=== PATIENT | female | born 1990 | race Two or more races ===

== ENCOUNTER 2016-10-07 12:32 | Emergency (ER) | payer SELFPAY ==
[~2016-10-07] VITALS: Ht 152.4 cm; Wt 69.4 kg
[~2016-10-07 12:32] MED LIST: NAPR500T PO; PREN1TAB99 PO
--- NOTE | 2016-10-07 13:07 | PHYS DOC ---
Past Medical History Past Medical History: Kidney Infection, Migraines Past Surgical History: No Surgical History Alcohol Use: None Drug Use: None Adult General Chief Complaint Chief Complaint: VOMITING IN HPI HPI Patient is a 26 year old female with history of kidney infections and migraine headaches who presents today complaining of nausea and vomiting in . She is currently 8 weeks . She is a 3 para 1. She states she's had nausea and vomiting for 2 weeks. She states she saw her own SURGICAL NURSE PRACTITIONER who put her on vitamin B 12 supplements for nausea and vomiting. Patient denies any abdominal pain, denies any vaginal bleeding. Denies any urgency frequency or dysuria. She states she has slight right flank pain. Review of Systems Review of Systems Constitutional: Denies fever or chills [] Eyes: Denies change in visual acuity, redness, or eye pain [] HENT: Denies nasal congestion or sore throat [] Respiratory: Denies cough or shortness of breath [] Cardiovascular: No additional information not addressed in HPI [] GI: nausea, vomiting, : Denies dysuria or hematuria [] Musculoskeletal: Denies back pain or joint pain [] Integument: Denies rash or skin lesions [] Neurologic: Denies headache, focal weakness or sensory changes [] Current Medications Current Medications Current Medications Medications (Trade) Dose Ordered Sig/Kassidy Start Time Stop Time Status Last Admin Dose Admin Ondansetron HCl (Zofran) 4 mg 1X ONCE 10/07/16 13:15 10/07/16 13:16 DC 10/07/16 13:49 4 MG Sodium Chloride 1,000 ml @ 1,000 mls/hr 1X ONCE 10/07/16 13:15 10/07/16 14:14 DC 10/07/16 13:49 1,000 MLS/HR Allergies Allergies Allergies Coded Allergies Type Severity Reaction Last Updated Verified No Known Drug Allergies 08/22/15 No Physical Exam Physical Exam Constitutional: Well developed, well nourished, no acute distress, non-toxic appearance. [] HENT: Normocephalic, atraumatic, bilateral external ears normal, oropharynx moist, no oral exudates, nose normal. [] Eyes: PERRLA, EOMI, conjunctiva normal, no discharge. [] Neck: Normal range of motion, no tenderness, supple, no stridor. [] Cardiovascular:Heart rate regular rhythm, no murmur [] Lungs & Thorax: Bilateral breath sounds clear to auscultation [] Abdomen: Bowel sounds normal, soft, no tenderness, no masses, no pulsatile masses. [] Skin: Warm, dry, no erythema, no rash. [] Back: No tenderness, no CVA tenderness. [] Extremities: No tenderness, no cyanosis, no clubbing, ROM intact, no edema. [] Neurologic: Alert and oriented X 3, normal motor function, normal sensory function, no focal deficits noted. [] Psychologic: Affect normal, judgement normal, mood normal. [] Current Patient Data Vital Signs Vital Signs Date Time Temp Pulse Resp B/P (MAP) Pulse Ox O2 Delivery O2 Flow Rate FiO2 10/07/16 12:52 98.6 98 18 115/66 (82) 97 Room Air 98.6 Lab Values Laboratory Tests Test 10/07/16 11:51 10/07/16 12:40 10/07/16 13:25 POC Urine HCG, Qualitative Hcg positive (Negative) Urine Color Rena Urine Clarity Cloudy Urine pH 6.0 Urine Specific Ashley >=1.030 Urine Protein Negative mg/dL (NEG-TRACE) Urine Glucose (UA) Negative mg/dL (NEG) Urine Ketones (Stick) Negative mg/dL (NEG) Urine Blood Negative (NEG) Urine Nitrite Negative (NEG) Urine Bilirubin Negative (NEG) Urine Urobilinogen Dipstick 0.2 mg/dL (0.2 mg/dL) Urine Leukocyte Esterase Small (NEG) Urine RBC 0 /HPF (0-2) Urine WBC 1-4 /HPF (0-4) Urine Squamous Epithelial Cells Mod /LPF Urine Bacteria Few /HPF (0-FEW) Urine Mucus Mod /LPF White Blood Count 8.4 x10^3/uL (4.0-11.0) Red Blood Count 4.42 x10^6/uL (3.50-5.40) Hemoglobin 12.8 g/dL (12.0-15.5) Hematocrit 37.9 % (36.0-47.0) Mean Corpuscular Volume 86 fL (79-100) Mean Corpuscular Hemoglobin 29 pg (25-35) Mean Corpuscular Hemoglobin Concent 34 g/dL (31-37) Red Cell Distribution Width 13.4 % (11.5-14.5) Platelet Count 277 x10^3/uL (140-400) Neutrophils (%) (Auto) 66 % (31-73) Lymphocytes (%) (Auto) 25 % (24-48) Monocytes (%) (Auto) 8 % (0-9) Eosinophils (%) (Auto) 1 % (0-3) Basophils (%) (Auto) 0 % (0-3) Neutrophils # (Auto) 5.6 x10^3uL (1.8-7.7) Lymphocytes # (Auto) 2.1 x10^3/uL (1.0-4.8) Monocytes # (Auto) 0.7 x10^3/uL (0.0-1.1) Eosinophils # (Auto) 0.1 x10^3/uL (0.0-0.7) Basophils # (Auto) 0.0 x10^3/uL (0.0-0.2) Maternal Serum HCG Beta Subunit 558005 mIU/mL (0-5) H Sodium Level 136 mmol/L (136-145) Potassium Level 3.7 mmol/L (3.5-5.1) Chloride Level 101 mmol/L (98-107) Carbon Dioxide Level 27 mmol/L (21-32) Anion Gap 8 (6-14) Blood Urea Nitrogen 11 mg/dL (7-20) Creatinine 0.5 mg/dL (0.6-1.0) L Estimated GFR (Cockcroft-Gault) 149.1 Glucose Level 85 mg/dL (70-99) Calcium Level 8.8 mg/dL (8.5-10.1) Laboratory Tests 10/07/16 13:25 Laboratory Tests 10/07/16 13:25 EKG EKG [] Radiology/Procedures Radiology/Procedures [] Course & Med Decision Making Course & Med Decision Making Pertinent Labs and Imaging studies reviewed. (See chart for details) This is a 26-year-old female patient 3 para 2 currently 8 weeks presenting to the ED with nausea vomiting for 2 weeks. Patient is currently on vitamin B12 supplements which she states her SURGICAL NURSE PRACTITIONER gave her for nausea and vomiting. Patient's CBC and BMP with no acute findings. Urine analysis shows she could have a slight infection of the urine appears contaminated she does have flank pain. She was discharged on cephalexin. She was given a liter of IV fluid and Zofran with very good relief. She was discharged with Zofran, promethazine, and instructed follow up with her SURGICAL NURSE PRACTITIONER as soon as possible. Сергей Disclaimer Сергей Disclaimer This electronic medical record was generated, in whole or in part, using a voice recognition dictation system. Departure Departure Impression: Primary Impression: Hyperemesis gravidarum Additional Impression: Urinary tract infection Disposition: 01 HOME, SELF-CARE Condition: STABLE Referrals: UNKNOWN PCP NAME (PCP) Follow-up with your SURGICAL NURSE PRACTITIONER as soon as you can Patient Instructions: Diet - Hyperemesis Gravidarum, Hyperemesis Gravidarum, Urinary Tract Infection Additional Instructions: You were seen for nausea and vomiting during . Take the medications provided as ordered. You also have slight infection in your urine, complete your antibiotics. Follow-up with your SURGICAL NURSE PRACTITIONER as soon as you can. Take the prescribed antinausea medicine as ordered. Come back to the ED at any point your symptoms worsen. Scripts Cephalexin (CEPHALEXIN) 500 Mg Tablet 1 TAB PO BID, #14 TAB Prov: DREW COLLINS APRN 10/07/16 Promethazine Hcl (PROMETHAZINE HCL) 25 Mg Tablet 1 TAB PO PRN Q6HRS, #20 TAB Prov: DREW COLLINS APRN 10/07/16 Ondansetron (ZOFRAN ODT) 4 Mg Tab.rapdis 1 TAB SL Q8HRS, #15 TAB Prov: DREW COLLINS APRN 10/07/16 Problem Qualifiers Additional Impression: Urinary tract infection Urinary tract infection type: site unspecified Hematuria presence: without hematuria Qualified Codes: N39.0 - Urinary tract infection, site not specified DREW COLLINS APRN Oct 07, 2016 13:07
[2016-10-07] MEDS ORDERED: ONDANSETRON PF 4 MG/2 ML VIAL. IV ONE (13:15)
[2016-10-07] MEDS ORDERED: IV NORMAL SALINE 1000ML BAG 1,000 ML IV ONE (13:15)
[2016-10-07 13:17] LABS: BILIRUBIN,URINE NEGATIVE (NEG); GLUCOSE,URINE NEGATIVE (NEG); NITRITE,URINE NEGATIVE (NEG); PROTEIN,URINE NEGATIVE (NEG-TRACE); UROBILINOGEN,URINE 0.2 mg/dL (0.2 mg/dL)
[2016-10-07 13:39] LABS: BASO % 0 % (0-3); EOS % 1 % (0-3); HEMATOCRIT 37.9 % (36.0-47.0); HEMOGLOBIN 12.8 g/dL (12.0-15.5); LYMPH # 2.1 x10^3/uL (1.0-4.8); LYMPH % 25 % (24-48); MEAN CORPUSCULAR HEMOGLOBIN 29 pg (25-35); MEAN CORPUSCULAR HGB CONC 34 g/dL (31-37); MEAN CORPUSCULAR VOLUME 86 fL (79-100); MONO % 8 % (0-9); NEUT % 66 % (31-73); PLATELET COUNT 277 x10^3/uL (140-400); RED BLOOD COUNT 4.42 x10^6/uL (3.50-5.40); RED CELL DISTRIBUTION WIDTH 13.4 % (11.5-14.5); WHITE BLOOD COUNT 8.4 x10^3/uL (4.0-11.0)
[2016-10-07 13:56] LABS: BACTERIA,URINE FEW /HPF (0-FEW); RBC,URINE 0 /HPF (0-2); SQUAMOUS EPITHELIAL CELL,UR MOD /LPF
[2016-10-07 13:57] LABS: CALCIUM 8.8 mg/dL (8.5-10.1); CREATININE 0.5 mg/dL (0.6-1.0); GFR 149.1; POTASSIUM 3.7 mmol/L (3.5-5.1)
[2016-10-07 15:00] VITALS: BP 106/61
[2016-10-07] MEDS ORDERED: ONDA4TAB10 SL (15:00)
[2016-10-07] MEDS ORDERED: CEPH500T PO (15:00)
[2016-10-07] MEDS ORDERED: PROM25TA10 PO (15:00)
== END 2016-10-07 15:30 | disposition home or self-care (01) ==
LOC: ER 12:32
DX: O21.0 Mild hyperemesis gravidarum (principal); O23.41 Unspecified infection of urinary tract in pregnancy, first trimester; O99.351 Diseases of the nervous system complicating pregnancy, first trimester; G43.909 Migraine, unspecified, not intractable, without status migrainosus; Z3A.08 8 weeks gestation of pregnancy
CPT/HCPCS: 36415; 80048; 81001; 81025; 84702; 85025; 87086; 96361; 96374; 99284; J2405; J7030

== ENCOUNTER 2017-04-23 02:11 | Inpatient (IN) | payer SELFPAY ==
[2017-04-23] MEDS ORDERED: IBUPROFEN 800 MG TABLET. PO (02:30)
[2017-04-23] MEDS ORDERED: BUTORPHANOL 2 MG/ML VIAL. IV ×2 (02:30)
[2017-04-23] MEDS ORDERED: IV RINGERS,LACTATED 1000ML 1,000 ML IV (02:30)
[2017-04-23] MEDS ORDERED: TERBUTALINE 1 MG/ML VIAL. SQ (02:30)
[2017-04-23] MEDS ORDERED: 0.9 % SODIUM CHLORIDE 10 ML DISP.SYRIN. IV ×2 (02:30→06:00)
[2017-04-23] MEDS ORDERED: LIDOCAINE 1% PF 30 ML VIAL. INJ (02:30)
[2017-04-23 02:45] LABS: BILIRUBIN,URINE NEGATIVE (NEG); CLARITY,URINE CLEAR; COLOR,URINE YELLOW; GLUCOSE,URINE NEGATIVE (NEG); NITRITE,URINE NEGATIVE (NEG); PROTEIN,URINE NEGATIVE (NEG-TRACE); UROBILINOGEN,URINE 0.2 mg/dL (0.2 mg/dL)
[2017-04-23 02:48] LABS: BACTERIA,URINE MANY /HPF (0-FEW); RBC,URINE OCC /HPF (0-2); WBC,URINE >40 /HPF (0-4)
[2017-04-23 02:49] LABS: SQUAMOUS EPITHELIAL CELL,UR MOD /LPF
[2017-04-23] MEDS: IV RINGERS,LACTATED 1000ML 1,000 ML IV (02:58)
[2017-04-23] MEDS: PENICILLIN G K 5,000,000 UNIT in IV DEXTROSE 5% 100 ML IV (02:58)
[2017-04-23] MEDS: fentaNYL PF VIAL 100 MCG/2 ML VIAL IV ×2 (03:01→04:22)
[2017-04-23] MEDS: OXYTOCIN 30 UNIT/500 ML PREMIX 500 ML IV (03:01)
[2017-04-23 03:24] LABS: ADD MAN DIFF? NO
[2017-04-23 03:26] LABS: BASO % 0 % (0-3); EOS % 1 % (0-3); HEMATOCRIT 36.3 % (36.0-47.0); HEMOGLOBIN 12.2 g/dL (12.0-15.5); LYMPH # 2.1 x10^3/uL (1.0-4.8); LYMPH % 21 % (24-48); MEAN CORPUSCULAR HEMOGLOBIN 28 pg (25-35); MEAN CORPUSCULAR HGB CONC 34 g/dL (31-37); MEAN CORPUSCULAR VOLUME 84 fL (79-100); MONO # 0.7 x10^3/uL (0.0-1.1); MONO % 7 % (0-9); NEUT # 7.1 x10^3uL (1.8-7.7); NEUT % 71 % (31-73); PLATELET COUNT 203 x10^3/uL (140-400); RED BLOOD COUNT 4.33 x10^6/uL (3.50-5.40); RED CELL DISTRIBUTION WIDTH 14.4 % (11.5-14.5)
[2017-04-23] MEDS ORDERED: PHENYLEPH/MINERAL OIL/PETROLAT RECTAL OINTMENT 28GM TUBE. RC (06:00)
[2017-04-23] MEDS ORDERED: diphenhydrAMINE HCL 25 MG CAPSULE PO (06:00)
[2017-04-23] MEDS ORDERED: SIMETHICONE 80 MG TAB.CHEW PO (06:00)
[2017-04-23] MEDS ORDERED: OXYTOCIN 30 UNIT/500 ML PREMIX 500 ML IV (06:00)
[2017-04-23] MEDS ORDERED: ZOLPIDEM 5 MG TABLET. PO (06:00)
[2017-04-23] MEDS ORDERED: MMR per PROTOCOL. MC (06:00)
[2017-04-23] MEDS ORDERED: HYDROCORTISONE 1% TOPICAL OINTMENT 30GM TUBE. TP (06:00)
[2017-04-23] MEDS ORDERED: ACETAMINOPHEN 325 MG TABLET. PO (06:00)
[2017-04-23] MEDS: MAG HYDROX/ALUMINUM HYD/SIMETH 30 ML ORAL.SUSP PO (06:35)
[2017-04-23] MEDS ORDERED: PENICILLIN G K 2,500,000 UNIT in IV DEXTROSE 5% 50 ML IV (07:00)
[2017-04-23] MEDS: IBUPROFEN 800 MG TABLET. PO ×2 (08:32→18:55)
[2017-04-23] MEDS: BENZOCAINE 20% TOPICAL AEROSOL SPRAY 57GM CAN. TP (08:32)
[2017-04-23] MEDS: DOCUSATE SODIUM 100 MG CAPSULE. PO ×2 (12:54→18:55)
[2017-04-23] MEDS: oxyCODONE/APAP 5/325 1 TAB TABLET PO (12:54)
[2017-04-24] MEDS: IBUPROFEN 800 MG TABLET. PO ×2 (01:51→14:35)
[2017-04-24 04:42] LABS: ADD MAN DIFF? NO
[2017-04-24 04:50] LABS: BASO % 0 % (0-3); EOS # 0.1 x10^3/uL (0.0-0.7); EOS % 1 % (0-3); HEMATOCRIT 32.8 % (36.0-47.0); HEMOGLOBIN 11.1 g/dL (12.0-15.5); LYMPH # 3.1 x10^3/uL (1.0-4.8); LYMPH % 31 % (24-48); MEAN CORPUSCULAR HEMOGLOBIN 28 pg (25-35); MEAN CORPUSCULAR HGB CONC 34 g/dL (31-37); MEAN CORPUSCULAR VOLUME 84 fL (79-100); MONO # 0.8 x10^3/uL (0.0-1.1); MONO % 9 % (0-9); NEUT % 60 % (31-73); PLATELET COUNT 181 x10^3/uL (140-400); RED CELL DISTRIBUTION WIDTH 14.9 % (11.5-14.5)
[2017-04-24 07:32] LABS: RPR Non Reactive (Non Reactive)
[2017-04-24] MEDS ORDERED: FERROUS SULFATE 325 MG TABLET. PO (08:00)
[2017-04-24] MEDS: MAGNESIUM HYDROXIDE 2,400 MG/30 ML ORAL.SUSP. PO (10:09)
[2017-04-24] MEDS: DOCUSATE SODIUM 100 MG CAPSULE. PO (10:09)
[2017-04-25] MEDS: oxyCODONE/APAP 5/325 1 TAB TABLET PO (04:02)
== END 2017-04-25 18:53 | disposition home or self-care (01) | DRG 774 ==
LOC: 3 SO LND 02:11
PROC: 10E0XZZ Delivery of Products of Conception, External Approach (ICD-10-PCS; principal; 2017-04-23)
DX: O99.834 Other infection carrier state complicating childbirth (principal); Z37.0 Single live birth; Z3A.38 38 weeks gestation of pregnancy
CPT/HCPCS: 36415; 81001; 85025; 86593; 86850; 86900; 86901; 87086; J2540; J2590; J3010; J7120